=== PATIENT | female | born 1985 | race Caucasian/White ===

== ENCOUNTER 2020-04-27 14:03 | Outpatient (AMBR) | payer OTHER, MEDICAID, SELFPAY ==
--- NOTE | 2020-04-27 14:29 | PT.OIERPT ---
PT OP Initial Eval Patient Information Visit Reasons: left knee pain Medical Diagnosis: M22.42 Treatment Dx #1: Left Knee Pain Treatment Dx #2: Left Knee Weakness Start of Care: 04/27/20 Date of Onset: 1 month ago Initial Assessment Subjective Pt is a 34 y/o female c/o left knee pain (11/26) started 1 month ago after she slipped and fell where she twisted her knee. Pt now notice popping and knee giving with certain activities. Pt has limitation with walking, squatting, kneeling, chores, cooking, cleaning, self care, balance, and recreational activities. Pt is scheduled for knee MRI 05/05/20 Objective Left Knee AROM: 0 deg to 120 deg with pain Left Knee MMTs Quads: 3/5 Hs: 3+/5 Left Hip MMTs Glute Med: 3/5 Glute Max: 3/5 SLS: unable Palpation: medial knee joint pain Special Test (+) Jorge (+) ant knee compression test Assessment Pt demonstrate left knee pain with possible meniscus involvement leading to decline function. Pt will attempt physical therapy if pain persist Pt will be refer back to MD for further consultation. 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 1) Increase left knee AROM WNL in 6 wks to be able to perform chores 2) Increase left knee MMTs grossly to 4-/5 in 6 wks to be able to perform squatting activities 3) Increase left hip MMTs grossly to 3+/5 in 6 wks to be able to perform recreational activities 4) Decrease knee pain to 2/10 in 6 wks to be able to walk more than 1 hr 5) Increase SLS to 20 sec in 6 wks to be able to perform self care activities 6) Indep with HEP Treatment Plan 1) Manual Therapy 2) Therapeutic Activities 3) Therapeutic Exercises 4) Modalities (ice, heat) 5) Balance Training Frequency and Duration 2 x wk for 6 wks Certification Dates: 04/27/20 to 07/28/20 Office Procedures PT Procedures PT Date of Service: 04/27/20 OP PT Eval Mod Complex 30 minutes: Yes
--- NOTE | 2020-05-25 13:48 | PT.ODS1RPT ---
PT OP Progress/Discharge Note Date of Service: 05/25/20 Progress Note/DC Note Progress Note/Discharge Note: DC Note Patient Information Visit Reasons: left knee pain Service Continue Service or Discharge: Discharge Discharge Date: 05/25/20 Status Assessment: Pt only seen for initial evaluation 04/27/20 and called 05/25 to cx all pending appt due to pending knee surgery. Pt will be d/c from care per Pt's request. Pt did not meet set goals in therapy, thank you for your referrals Office Procedures PT Procedures PT Date of Service: 04/27/20 OP PT Eval Mod Complex 30 minutes: Yes
== END 2020-05-17 23:59 | disposition home or self-care (01) ==
PROVIDERS: PCP Family Medicine; Referring Provider Family Medicine; Visit Provider Orthopaedic Surgery
DX: M22.42 Chondromalacia patellae, left knee (principal); M25.562 Pain in left knee; R53.1 Weakness; R26.2 Difficulty in walking, not elsewhere classified
CPT/HCPCS: 97162

== ENCOUNTER 2020-08-09 14:07 | Outpatient (AMBR) | payer OTHER, MEDICAID, SELFPAY ==
--- NOTE | 2020-08-02 14:46 | PTNOTE_ITS ---
PT OP Initial Eval Patient Information Visit Reasons: left knee post op Medical Diagnosis: Z47.89 Treatment Dx #1: Left Knee Mobility Deficits Treatment Dx #2: Left Knee Weakness Start of Care: 08/02/20 Date of Onset: 06/28/20 Initial Assessment Subjective Pt is a 34 y/o female s/p left knee medialization and lateral release 06/28/20. Pt has 5/10 pain with walking, chores, self care, and standing. Pt further mention that she's going for the same procedure on the right side once it's authorized via insurance. Pt will like to work towards being more independent and able to climb into her tub. Objective Left Knee AROM: - 10 deg to 59 deg Left Knee PROM: - 6 deg to 89 deg Left Knee MMTs Quads: 3-/5 Hs: 3-/5 Left Hip MMTs Glute Med: 3-/5 Glute Max: 3-/5 SLS: NT Knee Cap Mobility: hypomobile in all plane Assessment Pt demonstrate left knee mobility and strength deficits s/p knee surgery leading to decline function. Pt will benefit from physical therapy to increase ROM, strength, and work on ambulation. 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 [employer] Goals 1) Decrease knee flexion AROM to 125 deg in 12 wks to be able to perform chores 2) Increase left knee MMTs grossly to 4-/5 in 12 wks to be able to get in out of her tub 3) Increase left hip MMTs grossly to 3+/5 in 12 wks to be able to walk more than 1 hr 4) Decrease knee pain to 2/10 in 12 wks to be able get in/out of car 5) Increase SLS to 15 sec in 12 wks to be able to perform self care activities 6) Indep with HEP Treatment Plan 1) Manual Therapy 2) Therapeutic Activities 3) Therapeutic Exercises 4) Modalities (ice, heat) 5) Balance Training 6) Gait Training Frequency and Duration 2 x wk for 12 wks Certification Dates: 08/02/20 to 11/02/20 Office Procedures PT Procedures PT Date of Service: 08/02/20 OP PT Eval Mod Complex 30 minutes: Yes
--- NOTE | 2020-08-09 14:11 | PT.ODAYNRPT ---
PT Outpatient Daily Note Date of Service: 08/09/20 OP Daily Note Visit Reasons: left knee post op Outpatient Physical Therapy Treatment Date: 08/09/20 Subjective: Pt mention that she's going to get her right knee operated with same procedure 09/13/20. Pt mention she still has mild swelling aroind the knee. Objective: Please see flow chart for list of ther ex performed Assessment: tolerate exercises with minimal pain Plan: Continue with PT Length of Time (minutes) of Treatment: 30 Minutes Office Procedures PT Procedures PT Date of Service: 08/02/20 OP PT Eval Mod Complex 30 minutes: Yes PT Procedures PT Date of Service: 08/09/20 Therapeutic Exercise 30 minutes: Yes
== END 2020-08-16 23:59 | disposition home or self-care (01) ==
PROVIDERS: PCP Family Medicine; Referring Provider Family Medicine; Visit Provider Orthopaedic Surgery
DX: Z47.89 Encounter for other orthopedic aftercare (principal); M25.562 Pain in left knee; R53.1 Weakness; R26.2 Difficulty in walking, not elsewhere classified
CPT/HCPCS: 97110; 97162

== ENCOUNTER 2020-09-11 11:34 | Outpatient (AMBR) | payer OTHER, MEDICAID, SELFPAY ==
--- NOTE | 2020-08-17 10:32 | PT.ODAYNRPT ---
PT Outpatient Daily Note Date of Service: 08/17/20 OP Daily Note Visit Reasons: left knee post op Outpatient Physical Therapy Treatment Date: 08/17/20 Subjective: Pt's knee feels sore after last appt. Pt's been doing more of her exercises at home. Pt still scheduled for her right knee surgery at the end of the month Objective: Please see flow chart for list of ther ex performed Assessment: tolerate exercises performed today with minimal pain Plan: Continue with PT Length of Time (minutes) of Treatment: 30 Minutes Office Procedures PT Procedures PT Date of Service: 08/17/20 Therapeutic Exercise 30 minutes: Yes
--- NOTE | 2020-08-23 14:09 | PT.ODAYNRPT ---
PT Outpatient Daily Note Date of Service: 08/23/20 OP Daily Note Visit Reasons: left knee post op Outpatient Physical Therapy Treatment Date: 08/23/20 Subjective: Pt's been using more FWW at home which seems to help her back pain. Pt stated that her L LE is feeling much better. Pt notice some tightness in the back of her leg and will like it to be stretch Objective: Please see flow chart for list of ther ex performed Assessment: Hs stretch help decrease her post knee pain after stretching. Pt continues to improve with knee flexion AROM with less pain. Added side step with good tolerance to exercise Plan: Continue with PT Length of Time (minutes) of Treatment: 30 Minutes Office Procedures PT Procedures PT Date of Service: 08/17/20 Therapeutic Exercise 30 minutes: Yes PT Procedures PT Date of Service: 08/23/20 Therapeutic Exercise 30 minutes: Yes
--- NOTE | 2020-08-25 11:55 | PT.ODAYNRPT ---
PT Outpatient Daily Note Date of Service: 08/25/20 OP Daily Note Visit Reasons: left knee post op Outpatient Physical Therapy Treatment Date: 08/25/20 Subjective: Pt mention that her knee is sore. Pt will like to go a lot easier. Objective: Please see flow chart for list of ther ex performed Assessment: decrease reps today with exercises due to soreness and fatigue at the end of PT session. Pt tolerate all exercises well without increase knee pain Plan: Continue with PT Length of Time (minutes) of Treatment: 30 Minutes Office Procedures PT Procedures PT Date of Service: 08/17/20 Therapeutic Exercise 30 minutes: Yes PT Procedures PT Date of Service: 08/23/20 Therapeutic Exercise 30 minutes: Yes PT Procedures PT Date of Service: 08/25/20 Therapeutic Exercise 30 minutes: Yes
--- NOTE | 2020-09-04 14:47 | PT.ODAYNRPT ---
PT Outpatient Daily Note Date of Service: 09/04/20 OP Daily Note Visit Reasons: left knee post op Outpatient Physical Therapy Treatment Date: 09/04/20 Subjective: was really sore from last time Objective: Knee flexion: AROM//PROM 110 deg //120 deg Knee Extension: -4 deg Assessment: pt tolerated therex well today showing good teach back for exercises and activity endurance for all reps and sets. modified side steps exercises to decrease soreness in hips from last session from 8 times to 4 times. pt tolerated side steps exercise well showing better mobility in hips and legs throughout exercises. Plan: continue with POC Length of Time (minutes) of Treatment: 30 Minutes Office Procedures PT Procedures PT Date of Service: 08/17/20 Therapeutic Exercise 30 minutes: Yes PT Procedures PT Date of Service: 08/23/20 Therapeutic Exercise 30 minutes: Yes PT Procedures PT Date of Service: 08/25/20 Therapeutic Exercise 30 minutes: Yes PT Procedures PT Date of Service: 09/04/20 Therapeutic Exercise 30 minutes: Yes
--- NOTE | 2020-09-11 12:38 | PTNOTE_ITS ---
PT Outpatient Daily Note Date of Service: 09/11/20 OP Daily Note Visit Reasons: left knee post op Outpatient Physical Therapy Treatment Date: 09/11/20 Subjective: In a lot of pain today. 9/10 pain Objective: Manual; Joint line L knee STM 7 minutes Assessment: Pt tolerated STM at lateral knee joint line very well with decr easing her pain from a 9/10 to 5/10. Pt performed easier therex the remainder of the session such as quad sets, LAQs, Heel slides, etc. to manage pain and to not aggravate knee prior to pending R knee surgery. Plan: continue with POC Length of Time (minutes) of Treatment: 30 Minutes Office Procedures PT Procedures PT Date of Service: 08/17/20 Therapeutic Exercise 30 minutes: Yes PT Procedures PT Date of Service: 08/23/20 Therapeutic Exercise 30 minutes: Yes PT Procedures PT Date of Service: 08/25/20 Therapeutic Exercise 30 minutes: Yes PT Procedures PT Date of Service: 09/04/20 Therapeutic Exercise 30 minutes: Yes PT Procedures PT Date of Service: 09/11/20 Therapeutic Exercise 30 minutes: Yes
--- NOTE | 2020-09-14 09:35 | PT.ODS1RPT ---
PT OP Progress/Discharge Note Date of Service: 09/14/20 Progress Note/DC Note Progress Note/Discharge Note: DC Note Patient Information Visit Reasons: left knee post op Service Continue Service or Discharge: Discharge Discharge Date: 09/14/20 Status Assessment: Pt is having surgery on opposite knee today and will be d/c from care due to change in medical status. Pt did not meet set goals in therapy. Please refer patient back to therapy when she is appropriate, thank you for your referrals Office Procedures PT Procedures PT Date of Service: 08/17/20 Therapeutic Exercise 30 minutes: Yes PT Procedures PT Date of Service: 08/23/20 Therapeutic Exercise 30 minutes: Yes PT Procedures PT Date of Service: 08/25/20 Therapeutic Exercise 30 minutes: Yes PT Procedures PT Date of Service: 09/04/20 Therapeutic Exercise 30 minutes: Yes PT Procedures PT Date of Service: 09/11/20 Therapeutic Exercise 30 minutes: Yes
== END 2020-09-16 23:59 | disposition home or self-care (01) ==
PROVIDERS: PCP Family Medicine; Referring Provider Family Medicine; Visit Provider Orthopaedic Surgery
DX: Z47.89 Encounter for other orthopedic aftercare (principal); M25.562 Pain in left knee; R53.1 Weakness; R26.2 Difficulty in walking, not elsewhere classified
CPT/HCPCS: 97110

== ENCOUNTER 2025-01-02 16:57 | Emergency (ER) | payer MEDICARE, MEDICAID, SELFPAY ==
[2025-01-02 17:58] VITALS: BP 155/83; PULSE 78; RESP 18; TEMP 36.9; O2SAT 100
--- NOTE | 2025-01-02 18:35 | XR_ITS ---
EXAMINATION: Right wrist 2 views TECHNIQUE: AP lateral right wrist 2 views INDICATIONS: Right wrist pain beginning 1 week ago FINDINGS: No fracture or dislocation. No foreign body. No avascular necrosis. No erosive or other significant arthritic change IMPRESSION: No fracture or dislocation. No erosive or other significant arthritic change
[2025-01-02] MEDS: HYDROcodone/APAP 5/325 TABLET 1 TAB PO (19:49)
--- NOTE | 2025-01-03 00:39 | PD.EDHAND ---
Upper Extremity Injury RME/HPI General Chief Complaint: Hand/Wrist Problems Stated Complaint: R WRIST PAIN X4 WEEKS Time Seen by Provider: 01/02/25 18:29 Arrival date/time: 01/02/25 16:57 This is a case of 39-year-old female with no medical history came in in the emergency room due to right wrist pain for 4 weeks with swelling with unknown injury worsening symptoms thus patient decided to start consult here in the emergency room Limitations: no limitations Related Data Home Medications ?Medication ?Instructions ?Recorded ?Confirmed gabapentin 300 mg capsule 300 mg PO TID 06/27/20 10/25/21 metformin 1,000 mg tablet 1,000 mg PO BID 09/12/20 10/25/21 Held on 10/25/21. Instructions: Resume on 10/27/21. ferrous sulfate 325 mg (65 mg 325 mg PO QDAY 10/25/21 10/25/21 iron) tablet glimepiride 2 mg tablet 2 mg PO QAM 10/25/21 10/25/21 lisinopril 20 mg tablet 1 tab PO DAILY 10/25/21 10/25/21 pioglitazone 30 mg tablet 30 mg PO QDAY 10/25/21 10/25/21 Previous Rx's ?Medication ?Instructions ?Recorded hydrocodone 5 mg-acetaminophen 325 1 tab PO Q6H PRN pain #12 tabs 01/02/25 mg tablet Allergies Allergy/AdvReac Type Severity Reaction Status Date / Time No Known Allergies Allergy Verified 01/02/25 17:00 Review of Systems Review of Systems Systems Reviewed: All systems reviewed, normal except as documented Constitutional Constitutional: Reports system reviewed and no additional complaints, except as documented and Reports as per HPI Cardiovascular Cardiovascular: Reports system reviewed and no additional complaints, except as documented and Reports as per HPI Respiratory Respiratory: Reports system reviewed and no additional complaints, except as documented and Reports as per HPI Gastrointestinal Gastrointestinal: Reports system reviewed and no additional complaints, except as documented and Reports as per HPI Musculoskeletal Musculoskeletal: Reports system reviewed and no additional complaints, except as documented and Reports as per HPI Neurologic Neurologic: Reports system reviewed and no additional complaints, except as documented and Reports as per HPI Past Medical History Past Medical History NEUROLOGIC: Negative Neurological Disorders, Cerebrovascular Accident, Transient Ischemic Attacks (TIA), Dementia, Alzheimer's Disease, Parkinson's Disease, Brain Tumor, Meningitis, Seizures, Epilepsy, Multiple Sclerosis, Cerebral Palsy, Amyotrophic Lateral Sclerosis (ALS/Hansa Gehrig's), Guillain-[place] Syndrome, Spina Bifida, Paralysis, Peripheral Neuropathy, Craven's Palsy, Subdural Hematoma, Migraine, Head Trauma, Spinal Cord Injury or Traumatic Brain Injury CARDIAC: Positive Angina, Hypercholesterolemia and Hypertension; Negative Cardiac Disorders, Myocardial Infarction, Cardiac Arrhythmia, Atrial Fibrillation, Heart Murmur, Coronary Artery Disease, Atherosclerotic Heart Disease, Peripheral Vascular Disease, Aneurysm, Congestive Heart Failure, Congenital Heart Disease, Valvular Heart Disease, Rheumatic Fever, Cardiomyopathy, Edema, Pericarditis, Cellulitis, Deep Vein Thrombosis, Hypotension or Varicose Veins RESPIRATORY: Negative Chronic Obstructive Pulmonary Disease (COPD), Asthma, Bronchitis, Emphysema, Pneumonia, Pulmonary Fibrosis, Cystic Fibrosis, Tuberculosis, Pulmonary Embolism, Pulmonary Edema or Sleep Apnea GASTROINTESTINAL: Positive Gastrointestinal Disorders, Pancreatitis, Gall Bladder Disease and Obesity; Negative Hepatitis, Cirrhosis, Celiac Disease, Gastrointestinal Bleed, Esophageal Varices, Angela's Esophagus, Colitis, Ulcerative Colitis, Diverticulitis, Diverticulosis, Ulcer, Colorectal Cancer, Irritable Bowel, Crohn's Disease, Obstructive Bowel, Hiatal Hernia, Hemorrhoids or Gastroesophageal Reflux Disease GENITOURINARY: Positive Genitourinary Disorders and Kidney Stones; Negative Renal Disease, Polycystic Kidney Disease, Neurogenic Bladder, Inguinal Hernia or Dialysis REPRODUCTIVE: Negative Breast Cancer, Endometriosis, Genital Herpes, Gonorrhea, Pelvic Inflammatory Disease, Previous Pregnancies, Syphilis or Uterine Prolapse MUSCULOSKELETAL: Positive Musculoskeletal Disorders and Arthritis (to both hands and feet); Negative Muscular Dystrophy, Myasthenia Gravis, Marfan's Syndrome, Bone Cancer, Rheumatoid Arthritis, Osteoporosis, Degenerative Disk Disease, Gout, Scoliosis, Carpal Tunnel Syndrome, Fibromyalgia, Fractures, Degenerative Joint Disease, Osteomyelitis or Poliovirus ENT: Negative Cataracts, Glaucoma, Blind, Retinal Detachment, Macular Degeneration, Ear Infection, Deafness, Head Trauma or Eye Prosthesis ENDOCRINE: Positive Endocrine Disorders and Diabetes Mellitus Type 2; Negative Diabetes Mellitus Type 1, Hypoglycemia, [place]'s Syndrome, [place]'s Disease, Hyperthyroidism, Hypothyroidism, Parathyroid Disease, Pituitary Disease, Systemic Lupus Erythematosus, Syndrome of Inappropriate Antidiuretic Hormone (SIADH), Adrenal Disease or Graves' Disease HEMATOLOGIC: Negative Blood Disorders, Anemia, Leukemia, Hemophilia, Thalassemia, Sickle Cell Disease or Clotting Problems PSYCHO/SOCIAL: Negative Psychiatric Problems, Schizophrenia, Recreational Drug Use, Bipolar Disorder, Depression, Anxiety, Behavior Problems, Self-Mutilation, Attention Deficit Disorder, Attention Deficit Hyperactivity Disorder, Depression, Post Traumatic Stress Disorder or Eating Disorder OTHER HISTORY: Positive Falls (dislocated knee) and Chicken Pox; Negative Hospitalization, Autoimmune Disease, Down Syndrome, Autism, Developmental Delay, Shingles, Blood Transfusions, Blood Transfusion Reaction, Anesthesia Reactions, Organ Transplant, Chemotherapy, Radiation Therapy, Hyperbaric Therapy, MRSA, VRSA, Vancomycin-Resistant Enterococci, Human Immunodeficiency Virus (HIV), Measles, Mumps, Rubella ([place] Measles), Pertussis, Clostridium Difficile, Cancer, Breast Cancer, Cervical Cancer, Colorectal Cancer, Lung Cancer or Ovarian Cancer Family History FAMILY HISTORY: Positive Family Respiratory Disorders, Family Cardiac Disorders and Family Surgery; Negative Family Psychiatric Problems, Family Gastrointestinal Problems, Family Cancer or Family Anesthesia Reaction Surgical History SURGICAL: Negative Cardiac Surgery, Open Heart Surgery, Coronary Artery Bypass Graft, Valve Replacement, Vascular Surgery, Coronary Stent, Cardiac Catheterization, Pacemaker, Angiogram, Auto Implanted Cardiovert Defib, Carotid Endarterectomy, Endocrine Surgery, Thyroidectomy, Ear Surgery, Tympanostomy Tube, Eye Surgery, Nose Surgery, Oral Surgery, Tonsillectomy, Adenoidectomy, Cochlear Implant, Corneal Transplant, Throat Surgery, Abdominal Surgery, Tracheostomy, Gastric Bypass Surgery, Gastrostomy, Bowel Surgery, Nephrectomy, Transurethral Resection, Joint Replacement, Amputation, Open Reduction Internal Fixation, Arthroscopy, Neurologic Surgery, Brain Shunt, Mastectomy, Lumpectomy, Hysterectomy, Tubal Ligation, Section or Organ Transplant Social History SMOKING STATUS: Never smoker SECOND HAND EXPOSURE: No SUBSTANCE USE: does not use ED Exam General Limitations: Present no limitations General appearance: Present alert, in no apparent distress and other (Patient is awake alert oriented not in distress nontoxic looking well-hydrated well-nourished) Head Head exam: Present atraumatic, normocephalic and normal inspection Eye Eye exam: Present normal appearance, PERRL and EOMI ENT ENT exam: Present normal exam, normal oropharynx and mucous membranes moist Neck Neck exam: Present normal inspection, full ROM and trachea midline; Absent tenderness, meningismus, lymphadenopathy or thyromegaly Chest Chest inspection: Present normal inspection and symmetric chest wall rise; Absent tenderness Respiratory Respiratory exam: Present normal lung sounds bilaterally; Absent respiratory distress, wheezes, stridor, accessory muscle use or prolonged expiratory phase Cardiovascular Cardiovascular exam: Present regular rate, normal rhythm and normal heart sounds; Absent bradycardia, tachycardia, irregular rhythm, systolic murmur or diastolic murmur Abdominal Exam Abdominal exam: Present soft and normal bowel sounds; Absent distention, tenderness, guarding, rebound, rigidity, diminished bowel sounds, hyperactive bowel sounds, hypoactive bowel sounds or organomegaly Extremities Exam Extremities exam: Present normal inspection and full ROM Expanded Upper Extremity Exam Forearm/Wrist exam: Present tenderness, swelling, ecchymosis and other (ROM intact neurovascular intact); Absent abrasion, laceration, deformity, crepitus, dislocation, erythema, tenderness over anatomical snuff box or pain with axial thumb loading Hand exam: Present normal inspection, full ROM and other (ROM intact neurovascular); Absent tenderness, swelling, abrasion, laceration, skin avulsion, ecchymosis, deformity, crepitus, dislocation, erythema, amputation, nail avulsion or subungual hematoma Back Exam Back exam: Present normal inspection and full ROM Neurological Exam Neurological exam: Present alert, oriented X3, CN II-XII intact, normal gait and reflexes normal; Absent motor sensory deficit Psychiatric Psychiatric exam: Present normal affect and normal mood Skin Skin exam: Present warm, dry, intact and normal color Course Quality Measures none Orders Category Date Time Status Splint / Immobilizer STAT Care 01/02/25 19:10 Completed XR wrist RT 2V Stat Exams 01/02/25 18:35 Completed HYDROcodone*/APAP 5/325 [[place] 5/325] Med 01/02/25 19:10 Discontinued 1 tab PO X1 ONE Vital Signs Vital signs: Vital Signs Temperature 98.4 F 01/02/25 17:58 Pulse Rate 78 01/02/25 17:58 Respiratory Rate 18 01/02/25 17:58 Blood Pressure 155/83 H 01/02/25 17:58 Pulse Oximetry (%) 100 01/02/25 17:58 Oxygen Delivery Method Room Air 01/02/25 17:58 Oxygen saturation is 100% on room air Extremity Injury MDM Narrative MDM Narrative:: This is a case of 39-year-old female with no medical history came in in the emergency room due to right wrist pain for 4 weeks with swelling with unknown injury worsening symptoms thus patient decided to start consult here in the emergency room physical examination patient is awake alert oriented not in distress nontoxic looking well-hydrated well-nourished noted moderate tenderness and swelling with ecchymosis on the dorsal aspect of the right wrist ROM is intact pulses were full and equal capillary refill less than 2 seconds sensory intact x-ray showed a avulsion fracture and the distal radial splint was applied patient tolerated well neurovascular intact patient will follow-up with PCP to be referred to Ortho for further evaluation and treatment of the wrist fracture RICE treatment will continue by the parent patient at home worsening symptoms or any emergent concern return precaution in the ER was advised Patient was discharged with comfortable condition walking with stable gait. Patient verbalized no further complains explained diagnosis and answered patient question. Patient is comfortable with the proposed management plan including the need to follow up with his/her primary care physician and any specialist if applicable Discussed patient for any urgent condition or worsening sx, He/She needed to go to emergency room immediately or call 911. Patient acknowledge the responsibility to follow up as instructed and to monitor her/his symptoms. For any persistence of the symptoms for more than 3-5 days return precaution advised. Discussed the result of the test and was given printed discharge instruction Patient data External records reviewed:: [facility] previous records Clinical information provided by:: patient Social determinants that could affect healthcare access:: none Patient has the following chronic illnesses:: None How is presenting disease/condition affected by chronic disease/condition?: no chronic disease Evaluation data The following diagnostics were reviewed and interpreted by me:: radiology exam(s) Lab and/or radiology exams considered but not ordered:: Reviewed Interpretation Summary: Reviewed Medications / Prescriptions Medications or Prescriptions considered but not ordered:: Given Medication administrations:: Medication Administration History Discontinued Medications Hydrocodone Bitart/Acetaminophen (Hydrocodone/Apap 5/325 Tablet) 1 tab PO X1 ONE Stop: 01/02/25 19:11 Last Admin: 01/02/25 19:49 Dose: 1 tab Documented By: Given Consultations Consultation(s) initiated? (list below): No Diagnosis Upper Extremity Injury Differential Diagnosis: fracture of wrist and Colles' fracture Most likely diagnosis given after review of the tests above:: Avulsion fracture distal radial right wrist Admission Indicated Admission indicated?: not indicated Explain why admission is indicated or not indicated:: Not indicated Admission Request Was there a request for admission?: No Admission Attestation Admission request attestation: Not indicated Disposition Plan Disposition Plan: Discharge Discharge Attestation Discharge Attestation: The patient and all family members were given an opportunity to ask questions and understood the discharge instructions. Discharge instructions specifically effects, indications for sooner follow up or return to the emergency department, and the expected course of current diagnosis. Patient condition: Stable Discharge Plan Plan Patient Disposition: HOME (Self Care) Patient condition on transfer: Stable Prescriptions/Referrals Prescriptions/Med Rec: New hydrocodone-acetaminophen 5-325 mg tablet 1 tab PO Q6H MDD max 4 tabs per day PRN (Reason: pain) Qty: 12 0RF No Action metformin 1,000 mg Tablet 1,000 mg PO BID glimepiride 2 mg Tablet 2 mg PO QAM Rx Instructions: administer with breakfast ferrous sulfate 325 mg (65 mg iron) Tablet 325 mg PO QDAY pioglitazone 30 mg Tablet 30 mg PO QDAY lisinopril 20 mg tablet 1 tab PO DAILY gabapentin 300 mg capsule 300 mg PO TID Problem List Clinical Impression: Distal radius fracture, right Patient/Caregiver Discharge Instructions Education Materials: Wrist Fracture, ED Forearm Fx Wo Redu, ED Splint Care, Fiberglass, ED RICE Additional Instructions: Follow-up with your primary care physician in 2 days for reevaluation worsening symptoms or any emergent concern call 911 or go to the nearest emergency room it is very important to see an orthopedic surgeon for further evaluation and treatment of avulsion fracture distal radial right wrist ice pack every 2 hours for 20 minutes for 24 hours then alternate with warm compress elevate to decrease swelling keep the splint in place until cleared by your primary care physician Print Language: Tamazight Stand Alone Forms: Judith Award Info., Patient Portal Info Letter PA/CRACKING STILL OPERATOR Supervising Physician PA/[place] Supervising Physician: Dr. Evangelista
== END 2025-01-02 21:10 | disposition home or self-care (01) ==
LOC: SERX 19:35
PROVIDERS: Emergency Provider Emergency Medicine
DX: S52.501A Unspecified fracture of the lower end of right radius, initial encounter for closed fracture (principal); X58.XXXA Exposure to other specified factors, initial encounter
CPT/HCPCS: 73100; 99282; A9270